=== PATIENT | female | born 1960 | race African-American/Black ===

== ENCOUNTER → 2016-11-24 | Day surgery (SDC) | payer OTHER ==
[~2016-11-24] MED LIST: GABAPENTIN400 M2 PO; HYDROCHLOROTH12.5 M1 PO; MOBIC15 MG PO; ZYRTEC10 M1 PO
--- NOTE | ~2016-11-24 | OR ---
Unit #: [id number] #: [id number] Patient: BRADEN HANNON [id number] [address] [place], [place] [address] [id number] MR#: [id number] NAME: BRADEN HANNON ROOM: Date of Procedure: 11/24/2016 Admission Date: 11/24/2016 Surgeon: Bill Ramirez M.D. : 1960 Attending Physician: Bill Ramirez M.D. Primary Care Physician: Mandi Perera OPERATIVE REPORT PROCEDURES PERFORMED Esophagogastroduodenoscopy with biopsy and colonoscopy with snare polypectomy. INDICATIONS FOR PROCEDURE Father with colon cancer, left upper quadrant pain, undergoing upper endoscopy and colonoscopy. MEDICATIONS Monitored anesthesia. POSTOPERATIVE FINDINGS 1. Normal esophagus. 2. Normal duodenum and distal duodenum. 3. Gastric polyp versus mass. Biopsies were taken in the antral area. 4. Polyp, ascending colon, 5 mm, snared and sent for histopathology. 5. Polyp, sigmoid colon, snared and sent for histopathology. 6. Internal hemorrhoids. PLAN Follow up on the pathology report. Further recommendations to follow. DESCRIPTION OF PROCEDURE The patient was explained of the procedure, risks, and benefits along with risks and benefits of anesthesia. She was brought to the endoscopy room. Propofol anesthesia was given. Bite block was placed. The scope was passed down the mouth into esophagus, stomach, duodenum, and distal duodenum. Findings have been described above. Biopsies were taken. Gently, I pulled the scope out of the patient's mouth. She tolerated it well. At this time, she was turned around and repositioned for colonoscopy. Rectal exam was done, which was normal. Colonoscope was lubricated, passed up the rectum, advanced under direct vision all the way to the cecum. Cecum was identified by ileocecal valve and appendiceal orifice. Polyp seen in ascending colon and sigmoid colon was snared and sent for histopathology. I retroflexed in the rectum, internal hemorrhoids were noted. Gently, the scope was pulled out. She tolerated it well. No major complications were seen. Dictated by... Unit #: [id number] #: [id number] Patient: BRADEN HANNON Marcus Mcwilliams/modl TD: 12/13/2016 18:22 JOB #: [id number] OPERATIVE REPORT Page 1 of 1 X Bill Ramirez MD PROCEDURE OPERATIVE NOTE
== END | disposition home or self-care (01) ==
LOC: COPS 07:02
DX: K29.70 Gastritis, unspecified, without bleeding (principal); K31.7 Polyp of stomach and duodenum; D12.2 Benign neoplasm of ascending colon; K63.5 Polyp of colon; D12.5 Benign neoplasm of sigmoid colon; Z88.0 Allergy status to penicillin; F17.200 Nicotine dependence, unspecified, uncomplicated; Z80.0 Family history of malignant neoplasm of digestive organs
CPT/HCPCS: 88305; 88312